=== PATIENT | male | born 1965 | race Caucasian/White ===

== ENCOUNTER 2017-05-25 07:19 | Day surgery (SDC) | payer OTHER ==
[~2017-05-25] VITALS: Ht 170.2 cm; Wt 97.8 kg
[~2017-05-25 07:19] MED LIST: BUPIVACAINE 0.25% (MPF) 30 ML INJ ONE; CEFAZOLIN 2 GM/50 ML (PMX) 50 ML IVPB ONE; SOD CHLORIDE 0.9% 1,000 ML IV ONE
[2017-05-25 07:38] VITALS: BP 127/83; PULSE 72; RESP 18; Ht 170.2 cm; Wt 97.8 kg
[2017-05-25] MEDS ORDERED: FENTAnyl 50 MCG/ML VIAL ONE (07:52)
[2017-05-25] MEDS ORDERED: HYDROCODONE/APAP (5/325) TAB PO ONE (08:30)
[2017-05-25] MEDS ORDERED: MIDAZOLAM 1 MG/ML 2 ML INJ ONE (08:34)
[2017-05-25] MEDS ORDERED: PROPOFOL 20 ML ONE (08:35)
[2017-05-25] MEDS ORDERED: LIDOCAINE 2% (SDV) 5 ML INJ ONE (08:35)
[2017-05-25] MEDS ORDERED: CEFAZOLIN 1 GM INJ ONE (08:35)
[2017-05-25] MEDS ORDERED: ONDANSETRON 4 MG INJ ONE (08:35)
--- NOTE | 2017-05-25 08:35 | OPR ---
Date/Time of Note Date/Time of Note DATE: 05/25/17 TIME: 08:31 Operative Report Procedure Date: May 25, 2017 Preoperative Diagnosis left face and left neck mass Postoperative Diagnosis same Operation Performed excision of left face mass 3 cm incision 2 cm mass excision of left neck mass 3 cm incision 2 cm mass localized adjacent tissue transfer with the use of skin flaps 12 sq cm defect therapeutic [place] [id number] Surgeon: Jesus THOMPSON Specimens left neck mass left face mass Procedure Description Patient is taken to the OR and prepped and draped in usual sterile fashion. Surgical timeout was performed IV antibiotics were given. Incision is made transversely over the left face mass. Dissection cautery is taken down to the mass and circumferentially excised. There is good hemostasis. Due to the tissue defect localization since transfer to the skin flaps was performed. Attention is paid to the left neck mass. Transverse incision was made with the 15 blade. Dissection cautery was used to circumferentially excise the mass. Due to tissue defect localized patient to transfer with these skin flaps was performed. Postsurgical sites are closed with interrupted 3-0 Vicryl and running 4-0 Monocryl. Subcutaneous layer. Local anesthesia was injected to both incision sites. Dermabond is applied. Jesus THOMPSON May 25, 2017 08:35
[2017-05-25 08:41] VITALS: BP 110/72; PULSE 78; RESP 14
[2017-05-25 08:45] VITALS: BP 107/74; PULSE 78; RESP 14
[2017-05-25 08:50] VITALS: BP 114/72; PULSE 74; RESP 12
[2017-05-25 08:55] VITALS: BP 103/63; PULSE 76; RESP 16
[2017-05-25 09:45] VITALS: BP 108/73; PULSE 61; RESP 16
== END 2017-05-25 09:45 | disposition home or self-care (01) ==
LOC: SDS 07:19
PROVIDERS: ATTEND Surgery
DX: D17.0 Benign lipomatous neoplasm of skin and subcutaneous tissue of head, face and neck (principal); I10 Essential (primary) hypertension; E11.9 Type 2 diabetes mellitus without complications; E66.9 Obesity, unspecified; Z68.33 Body mass index [BMI] 33.0-33.9, adult
CPT/HCPCS: 14040; 88307; J0690; J2250; J2405; J3010; Z7512; Z7610